=== PATIENT | female | born 1995 | race Two or more races ===

== ENCOUNTER 2023-09-08 13:08 | Emergency (ER) | payer MEDICAID, OTHER ==
[~2023-09-08] VITALS: Ht 154.9 cm; Wt 60.0 kg
[2023-09-08 13:42] LABS: Urine Bacteria MOD /hpf (None Seen); Urine Blood TRACE /uL (Negative); Urine Clarity Clear (Clear); Urine Protein, UAD Negative (Negative); Urine Specific Gravity 1.003 (1.001-1.035); Urine Urobilinogen Normal (Negative); Urine WBC 1 /hpf (0 - 5); Urine pH 6.5 (5.0-9.0)
[2023-09-08 13:43] LABS: Urine Color Light Yellow (Yellow)
[2023-09-08 14:40] VITALS: BP 110/88; PULSE 80; RESP 16; TEMP 98; O2SAT 100
== END 2023-09-08 14:41 | disposition home or self-care (01) ==
LOC: ER 13:12
DX: O20.0 Threatened abortion (principal); R10.2 Pelvic and perineal pain; O26.891 Other specified pregnancy related conditions, first trimester; R10.9 Unspecified abdominal pain; Z3A.10 10 weeks gestation of pregnancy
CPT/HCPCS: 36415; 76801; 81001; 81025; 84702